=== PATIENT | male | born 1985 | race Caucasian/White ===

== ENCOUNTER 2017-03-01 18:36 | Emergency (ER) | payer MEDICAID ==
[~2017-03-01] VITALS: Ht 182.9 cm; Wt 75.7 kg
[~2017-03-01 18:36] MED LIST: DIP005TP TOP
[2017-03-01 18:41] VITALS: BP 132/68
== END 2017-03-01 23:56 | disposition left against medical advice (07) ==
LOC: ER 18:42
DX: R21 Rash and other nonspecific skin eruption (principal); Z53.21 Procedure and treatment not carried out due to patient leaving prior to being seen by health care provider

== ENCOUNTER 2017-04-01 13:16 | Emergency (ER) | payer MEDICAID ==
[~2017-04-01] VITALS: Ht 185.4 cm; Wt 83.9 kg
[2017-04-01 14:05] LABS: Basophils # (auto) 0 uL; Basophils % (auto) 0.7 % (0.0-2.0); CONDITION Y; Eosinophils # (auto) 0.1 uL; Eosinophils % (auto) 2.6 % (0.0-7.0); Hematocrit 38.1 % (41.0-53.0); Hemoglobin 12.9 g/dL (13.5-17.5); Lymphocytes # (auto) 1.1 uL; Lymphocytes % (auto) 24.3 % (10.0-50.0); Mean Corpuscular Hgb Conc. 33.9 g/dL (32.0-36.0); Mean Corpuscular Volume 82.6 fL (80.0-100.0); Mean Platelet Volume 8.3 fL (7.4-10.4); Monocytes # (auto) 0.5 uL; Neutrophils # (auto) 2.8 uL; Neutrophils % (auto) 62.4 % (37.0-80.0); Platelet Count (auto) 200 10^3/uL (140-450); Red Cell Distribution Width 13.8 % (11.6-16.0); White Blood Cell 4.5 10^3/uL (4.4-10.8)
[2017-04-01 14:29] LABS: Albumin 3.9 g/dL (3.4-5.0); BUN/Creatinine Ratio 16.5; Bilirubin, Total 0.5 mg/dL (0.2-1.0); Calcium 8.9 mg/dL (8.5-10.1); Potassium 4.1 mmol/L (3.5-5.1); Total Protein 6.8 g/dL (6.4-8.2)
[2017-04-01 19:23] VITALS: BP 115/66
== END 2017-04-01 20:09 | disposition home or self-care (01) ==
LOC: ER 13:21
DX: B19.20 Unspecified viral hepatitis C without hepatic coma (principal); R53.1 Weakness; Z85.47 Personal history of malignant neoplasm of testis; Z88.0 Allergy status to penicillin
CPT/HCPCS: 36415; 80053; 85025

== ENCOUNTER 2017-04-29 19:52 | Emergency (ER) | payer MEDICAID ==
[~2017-04-29] VITALS: Ht 182.9 cm; Wt 83.9 kg
[2017-04-29 21:09] LABS: Basophils # (auto) 0 uL; Basophils % (auto) 0.5 % (0.0-2.0); CONDITION Y; Eosinophils # (auto) 0.1 uL; Eosinophils % (auto) 2.6 % (0.0-7.0); Hematocrit 40.9 % (41.0-53.0); Hemoglobin 13.7 g/dL (13.5-17.5); Lymphocytes # (auto) 1.3 uL; Lymphocytes % (auto) 27.3 % (10.0-50.0); Mean Corpuscular Hemoglobin 28.1 pg (28.0-32.0); Mean Corpuscular Hgb Conc. 33.5 g/dL (32.0-36.0); Mean Corpuscular Volume 83.8 fL (80.0-100.0); Mean Platelet Volume 8.6 fL (7.4-10.4); Monocytes # (auto) 0.5 uL; Monocytes % (auto) 9.7 % (0.0-12.0); Neutrophils # (auto) 2.9 uL; Neutrophils % (auto) 59.9 % (37.0-80.0); Platelet Count (auto) 221 10^3/uL (140-450); Red Cell Distribution Width 13.7 % (11.6-16.0); White Blood Cell 4.8 10^3/uL (4.4-10.8)
[2017-04-29 21:25] LABS: Albumin 4.1 g/dL (3.4-5.0); Calcium 8.9 mg/dL (8.5-10.1); Magnesium 2.3 mg/dL (1.6-2.6); Potassium 3.8 mmol/L (3.5-5.1)
[2017-04-29 21:26] LABS: BUN/Creatinine Ratio 12.3
[2017-04-29 21:28] LABS: Bilirubin, Total 0.4 mg/dL (0.2-1.0); Total Protein 7.5 g/dL (6.4-8.2)
[2017-04-29 21:49] LABS: Urine RBC None Seen /hpf (0 - 3)
[2017-04-29 21:56] LABS: Urine Bilirubin Negative (Negative); Urine Blood Negative /uL (Negative); Urine Color Yellow (Yellow); Urine Glucose Normal (Normal); Urine Ketone Negative (Negative); Urine Nitrite Negative (Negative); Urine Urobilinogen Normal (Negative)
[2017-04-30] MEDS ORDERED: MAGNESIUM CITRATE SOLUTION 300 ML BTL PO ONE (03:15)
[2017-04-30] MEDS ORDERED: GOLYTELY 4L KIT ONE (03:17)
[2017-04-30] MEDS ORDERED: GOLYTELY 4L KIT PO ONE (03:30)
[2017-04-30 04:11] VITALS: BP 133/80
== END 2017-04-30 05:19 | disposition home or self-care (01) ==
LOC: ER 19:52
DX: K56.41 Fecal impaction (principal); Z86.19 Personal history of other infectious and parasitic diseases; Z85.47 Personal history of malignant neoplasm of testis; Z88.0 Allergy status to penicillin
CPT/HCPCS: 36415; 74176; 80053; 81001; 83690; 83735; 85025

== ENCOUNTER 2017-10-29 07:46 | Emergency (ER) | payer OTHER, MEDICAID ==
[~2017-10-29] VITALS: Ht 182.9 cm; Wt 83.9 kg
[2017-10-29 08:10] VITALS: BP 117/66
== END 2017-10-29 08:40 | disposition home or self-care (01) ==
LOC: ER 07:46
DX: S50.12XA Contusion of left forearm, initial encounter (principal); Z88.0 Allergy status to penicillin; W22.8XXA Striking against or struck by other objects, initial encounter; Y93.89 Activity, other specified; Y99.8 Other external cause status; Y92.89 Other specified places as the place of occurrence of the external cause
CPT/HCPCS: 73090

== ENCOUNTER 2020-07-26 12:03 | Emergency (ER) | payer MEDICAID, OTHER ==
[~2020-07-26] VITALS: Ht 182.9 cm; Wt 86.2 kg
[2020-07-26 12:13] VITALS: BP 117/68
== END 2020-07-26 14:41 | disposition left against medical advice (07) ==
LOC: ER 12:03
DX: M54.5 Low back pain (principal); Z53.21 Procedure and treatment not carried out due to patient leaving prior to being seen by health care provider

== ENCOUNTER 2021-07-17 16:36 | Emergency (ER) | payer OTHER ==
[~2021-07-17] VITALS: Ht 182.9 cm; Wt 83.9 kg
[2021-07-17 16:37] VITALS: BP 135/71
[2021-07-17] MEDS ORDERED: SODIUM CHLORIDE 0.9% 500 ML IV ONE (17:00)
== END 2021-07-17 18:33 | disposition left against medical advice (07) ==
LOC: ER 16:36
DX: R42 Dizziness and giddiness (principal); R53.1 Weakness; F17.210 Nicotine dependence, cigarettes, uncomplicated; Z88.0 Allergy status to penicillin; Z53.29 Procedure and treatment not carried out because of patient's decision for other reasons
CPT/HCPCS: 71046; 93005

== ENCOUNTER → 2022-02-13 | Emergency (ER) | payer OTHER ==
[~2022-02-13] VITALS: Ht 182.9 cm; Wt 93.0 kg
[2022-02-13 19:11] VITALS: BP 136/70
== END | disposition left against medical advice (07) ==
LOC: ER 19:10
DX: R42 Dizziness and giddiness (principal); R11.2 Nausea with vomiting, unspecified; Z53.21 Procedure and treatment not carried out due to patient leaving prior to being seen by health care provider
CPT/HCPCS: 36600; 82805; 93005